=== PATIENT | male | born 1960 | race Caucasian/White ===

== ENCOUNTER → 2016-04-16 | Day surgery (SDC) | payer MEDICARE ==
[~2016-04-16] VITALS: Ht 185.4 cm; Wt 98.0 kg
[~2016-04-16] MED LIST: CONRAY-60 60% 50ML VIAL (Q9961) As Ordered ONE; EFFE37.527 PO; FLOM5CAP PO; GLYCOPYRROLATE INJ 0.2 MG/ML 2 ML VIAL As Ordered ONE; HYDR1TAB97 PO; HYDROmorphone HCL 1 MG/ML SYRINGE (J1170) IV PRN; LACT10SO29 PO; LIDOCAINE 2% INJ 100 MG/5 ML SDV (FOR ANES.) As Ordered ONE; LR 1,000 ML IV SCH; METOCLOPRAMIDE INJ 10MG/2ML VIAL (J2765) As Ordered ONE; MIDAZOLAM INJ 2 MG/2 ML VIAL (J2250) As Ordered ONE; MULT1TAB10 PO; NEOSTIGMINE 1MG/ML 5 ML SYRINGE (J2710) As Ordered ONE; NORCO, ANEXSIA 5/325MG TABLET (HYDROcodone/ACETAMINOPHEN) PO PRN; OMEP20CA3 PO; ONDA4TAB6 SL; ONDANSETRON 4MG/2ML VIAL (J2405) As Ordered ONE; ONDANSETRON 4MG/2ML VIAL (J2405) IV PRN; PROP10TAB PO; PROP20EL PO; PROPOFOL 200 MG/20 ML VIAL As Ordered ONE; ROCURONIUM BROMIDE 50 MG/5 ML VIAL As Ordered ONE; SPIR100T PO; TRAM50TA2 PO; VIAG100T PO; dexameTHASONE 4 MG/ML 1ML VIAL (J1100) As Ordered ONE; fentaNYL 100 MCG/2 ML INJECTION (J3010) As Ordered ONE
--- NOTE | 2016-04-16 10:25 | RO ---
DATE OF PROCEDURE: 04/16/2016 PREPROCEDURE DIAGNOSIS: Obstructing right ureteral stone. POSTPROCEDURE DIAGNOSIS: Obstructing right ureteral stone. PROCEDURE: Cystoscopy, right ureteroscopy with laser lithotripsy and basket extraction of stones, right retrograde pyelogram with intraoperative interpretation of images, right ureteral stent placement. SURGEON: Dr. Serge Muniz. WRIST CLOSER: None. ANESTHESIA: General. OPERATIVE INDICATIONS: This is a 55-year-old male who was found to have an obstructing 8-9 mm proximal right ureteral stone recently on CAT scan. He was brought to the operating room today for treatment. DESCRIPTION OF PROCEDURE: The patient was brought to the operating room where general anesthesia was induced. Prophylactic antibiotics were infused. He was placed in dorsal lithotomy position, and prepped and draped in the usual sterile fashion. A rigid cystoscope was then inserted into the urethral meatus and advanced into the bladder. Once within the bladder, a guidewire was advanced up the right collecting system. The cystoscope was then removed and the wire was utilized to advance a ureteral access sheath up the right collecting system. The stylet was the removed and the wire was secured to the drape to serve as a safety wire. I then went up the ureteral access sheath with a flexible ureteroscope and in the proximal right ureter, there was an obstructing 8-9 mm stone. The stone was fragmented into several smaller pieces using a 200 micron laser fiber. The larger of these stone fragments were then removed using the stone basket. Some of the smaller fragments were washed up into the kidney. The kidney was thoroughly examined and there were a few small stone fragments that were deemed small enough to pass on either own. Any larger stone fragments were removed with the stone basket. After that, a retrograde pyelogram was performed and it was notable for moderate right hydronephrosis. At this point, the ureteral access sheath was removed along with the ureteroscope and no additional stones were seen behind the ureteral access sheath. I then utilized the previously placed wire to advance a #6 [place] x 22-32 cm JJ ureteral stent up into the right collecting system. The wire was then removed and there was adequate curls of the stent in the right renal pelvis and in the bladder. The bladder was then emptied of all fluid and this marked the conclusion of the procedure. The patient was then taken out of dorsal lithotomy position, awakened from anesthesia and transported to the recovery room in stable condition. ESTIMATED BLOOD LOSS: 0 mL. COMPLICATIONS: None. SPECIMENS: Kidney stone fragments. PLAN: The patient will followup in the clinic in a few weeks for cystoscopy and stent removal. DAVID
[2016-04-16] MEDS: fentaNYL 100 MCG/2 ML INJECTION (J3010) IV PRN ×4 (10:30→10:45)
--- NOTE | 2016-04-16 10:45 | REP ---
C-ARM VIEWS DURING RETROGRADE PYELOGRAM: First image shows a calculus in the proximal right ureter. There is a wire in the right ureter extending into the right renal pelvis. There is injection of contrast on the second image partially opacifying the right pelvicaliceal system. There is placement of a right ureteral stent on subsequent image with the proximal end coiled in the region of the right renal pelvis and the distal end coiled in the region over the urinary bladder. 19 seconds of fluoroscopy time utilized. Signed by Krishna Marino MD 04/16/2016 05:20 P
[2016-04-16 12:15] VITALS: BP 138/78
== END | disposition home or self-care (01) ==
LOC: M SDC 07:25
PROVIDERS: ATTEND Urology
DX: N20.1 Calculus of ureter (principal); I12.9 Hypertensive chronic kidney disease with stage 1 through stage 4 chronic kidney disease, or unspecified chronic kidney disease; E03.9 Hypothyroidism, unspecified; K82.9 Disease of gallbladder, unspecified; K74.60 Unspecified cirrhosis of liver; R23.3 Spontaneous ecchymoses; G47.9 Sleep disorder, unspecified; H81.02 Meniere's disease, left ear; N18.9 Chronic kidney disease, unspecified; Z88.5 Allergy status to narcotic agent; Z88.6 Allergy status to analgesic agent; Z79.899 Other long term (current) drug therapy
CPT/HCPCS: 52352; 52356; 74420; 82360; 88300; 96374; 96375; J0690; J1100; J1170; J2250; J2405; J2710; J2765; J3010; Q9961

== ENCOUNTER → 2017-07-16 | Outpatient (CLI) | payer MEDICARE ==
[2017-07-16 12:53] LABS: AMMONIA 27 uMOL/L (<32)
== END ==
LOC: M RAD 10:10
DX: K82.8 Other specified diseases of gallbladder (principal); K76.0 Fatty (change of) liver, not elsewhere classified; K74.60 Unspecified cirrhosis of liver
CPT/HCPCS: 76700

== ENCOUNTER → 2018-10-05 | Outpatient (CLI) | payer MEDICARE ==
[~2018-10-05] MED LIST changes: -CONRAY-60 60% 50ML VIAL (Q9961) As Ordered ONE; +EFFE37.5 PO; -EFFE37.527 PO; +FLOM0.4C39 PO; -FLOM5CAP PO; -GLYCOPYRROLATE INJ 0.2 MG/ML 2 ML VIAL As Ordered ONE; +HYDR-3713 PO; -HYDR1TAB97 PO; -HYDROmorphone HCL 1 MG/ML SYRINGE (J1170) IV PRN; -LIDOCAINE 2% INJ 100 MG/5 ML SDV (FOR ANES.) As Ordered ONE; -LR 1,000 ML IV SCH; -METOCLOPRAMIDE INJ 10MG/2ML VIAL (J2765) As Ordered ONE; -MIDAZOLAM INJ 2 MG/2 ML VIAL (J2250) As Ordered ONE; -NEOSTIGMINE 1MG/ML 5 ML SYRINGE (J2710) As Ordered ONE; -NORCO, ANEXSIA 5/325MG TABLET (HYDROcodone/ACETAMINOPHEN) PO PRN; -ONDANSETRON 4MG/2ML VIAL (J2405) As Ordered ONE; -ONDANSETRON 4MG/2ML VIAL (J2405) IV PRN; +PROP10TA56 PO; -PROP10TAB PO; -PROPOFOL 200 MG/20 ML VIAL As Ordered ONE; -ROCURONIUM BROMIDE 50 MG/5 ML VIAL As Ordered ONE; -SPIR100T PO; +SPIR100T3 PO; -dexameTHASONE 4 MG/ML 1ML VIAL (J1100) As Ordered ONE; -fentaNYL 100 MCG/2 ML INJECTION (J3010) As Ordered ONE
--- NOTE | 2018-10-05 11:51 | REP ---
Clinical: Cirrhosis. Technique: Real time rodriguez scale ultrasound examination using curved array transducer. Comparison: 07/16/2017. Findings: The liver demonstrates coarsened echotexture with nodular contour consistent with cirrhosis. No focal hepatic lesion identified. Main portal vein measures 14.3 mm diameter with normal wave pattern at 39.0 cm/sec. The gallbladder is contracted and presumed to be filled with gallstones although gallbladder wall calcifications cannot be excluded as well. No biliary ductal dilatation is appreciated and the common bile duct measures 2.9 mm diameter. The pancreas is incompletely evaluated due to interposed bowel gas but visualized portions appear normal. The spleen is mildly enlarged and measures 11.1 x 5.6 x 12.7 cm (splenic index 789) without focal splenic lesion identified. The bilateral kidneys are relatively normal in reniform shape without hydronephrosis. Right kidney measures 11.7 x 6.1 x 6.2 cm. Left kidney measures 11.8 x 4.7 x 5.8 cm. Abdominal aorta is normal and measures 2.3 cm maximal diameter. No ascites noted. Impression: 1. Cirrhosis without focal hepatic lesion identified. 2. Contracted gallbladder with calcified wall and/or cholelithiasis. 3. Mildly enlarged spleen without focal splenic lesion identified. Electronically Signed by Kadeem Kirkpatrick MD 10/05/2018 11:42 A
== END ==
LOC: M RAD 09:34
PROVIDERS: ATTEND Internal Medicine Gastroenterology
DX: K74.60 Unspecified cirrhosis of liver (principal)

== ENCOUNTER → 2019-03-08 | Outpatient (CLI) | payer MEDICARE ==
[~2019-03-08] MED LIST changes: -OMEP20CA3 PO; +OMEP20CA4 PO
[2019-03-08 08:00] LABS: HEMATOCRIT 45.4 % (42.0-52.0); HEMOGLOBIN 15.4 g/dl (13.5-17.5); MEAN CORPUSCULAR HEMOGLOBIN 30.4 pg (27.0-33.0); MEAN CORPUSCULAR HGB CONC 33.9 g/dl (32.0-36.5); MEAN CORPUSCULAR VOLUME 89.7 fl (80.0-96.0); PLATELET COUNT, AUTOMATED 237 10^3/uL (150-450); RED BLOOD COUNT 5.06 10^6/uL (4.30-6.10); WHITE BLOOD COUNT 10.5 10^3/uL (4.0-10.0)
[2019-03-08 08:11] LABS: PROTHROMBIN TIME 12.9 SECONDS (11.8-14.0)
[2019-03-08 08:19] LABS: ALBUMIN 4.4 GM/DL (3.2-5.2); ALT/SGPT 23 U/L (12-78); BILIRUBIN,TOTAL 0.5 MG/DL (0.2-1.0); BLOOD UREA NITROGEN 16 MG/DL (7-18); CALCIUM LEVEL 9.3 MG/DL (8.5-10.1); CARBON DIOXIDE LEVEL 29 MEQ/L (21-32); CHLORIDE LEVEL 105 MEQ/L (98-107); CREATININE FOR GFR 1.29 MG/DL (0.70-1.30); GLOMERULAR FILTRATION RATE > 60.0 (>56); GLUCOSE, FASTING 98 MG/DL (70-100); POTASSIUM SERUM 4.4 MEQ/L (3.5-5.1); SODIUM LEVEL 140 MEQ/L (136-145); TOTAL PROTEIN 8.3 GM/DL (6.4-8.2)
--- NOTE | 2019-03-08 12:35 | REP ---
Clinical: Cirrhosis. Technique: Real time rodriguez scale ultrasound examination using curved array transducer. Comparison: 10/05/2018 Findings: The liver is heterogeneous and increased in density with poor through transmission suggesting hepatocellular disease. No focal hepatic lesion identified. The pancreas is incompletely evaluated due to interposed bowel gas. The spleen is mildly enlarged and measures 11.3 x 11.2 x 4.4 cm without focal splenic lesion identified. The gallbladder is incompletely evaluated due to technical factors. The common bile duct is normal and measures 3.4 mm diameter. The bilateral kidneys without hydronephrosis. Right kidney measures 11.8 x 5.8 x 5.7 cm. Left kidney measures 11.4 x 4.8 x 5.7 cm. Visualized abdominal aorta measures up to 1.8 cm maximal diameter. No ascites identified. Impression: 1. Significantly limited examination demonstrating hepatocellular disease consistent with cirrhosis. No focal hepatic lesion identified. 2. Mild splenomegaly. 3. Poor evaluation of the gallbladder due to technical factors. Electronically Signed by Kadeem Kirkpatrick MD 03/08/2019 09:37 A
== END ==
LOC: M RAD 07:26
PROVIDERS: ATTEND Internal Medicine Gastroenterology
DX: R16.1 Splenomegaly, not elsewhere classified (principal); K74.60 Unspecified cirrhosis of liver

== ENCOUNTER → 2019-09-30 | Outpatient (CLI) | payer MEDICARE ==
[~2019-09-30] MED LIST changes: -LACT10SO29 PO; +LACT20EL PO; +OMEP1CAP73 PO; -OMEP20CA4 PO
[2019-09-30 17:49] LABS: HEMATOCRIT 46.8 % (42.0-52.0); HEMOGLOBIN 15.5 g/dl (13.5-17.5); MEAN CORPUSCULAR HEMOGLOBIN 29.6 pg (27.0-33.0); MEAN CORPUSCULAR HGB CONC 33.1 g/dl (32.0-36.5); MEAN CORPUSCULAR VOLUME 89.3 fl (80.0-96.0); PLATELET COUNT, AUTOMATED 254 10^3/uL (150-450); RED BLOOD COUNT 5.24 10^6/uL (4.30-6.10)
[2019-09-30 18:21] LABS: ALBUMIN 4.5 GM/DL (3.2-5.2); ALT/SGPT 19 U/L (12-78); BILIRUBIN,TOTAL 0.3 MG/DL (0.2-1.0); BLOOD UREA NITROGEN 13 MG/DL (7-18); CALCIUM LEVEL 9.9 MG/DL (8.5-10.1); CARBON DIOXIDE LEVEL 29 MEQ/L (21-32); CHLORIDE LEVEL 104 MEQ/L (98-107); CREATININE FOR GFR 1.23 MG/DL (0.70-1.30); GLOMERULAR FILTRATION RATE > 60.0 (>56); GLUCOSE, FASTING 88 MG/DL (70-100); POTASSIUM SERUM 4.9 MEQ/L (3.5-5.1); SODIUM LEVEL 136 MEQ/L (136-145); TOTAL PROTEIN 8.2 GM/DL (6.4-8.2)
== END ==
LOC: M LAB 17:09
PROVIDERS: ATTEND Internal Medicine
DX: K74.60 Unspecified cirrhosis of liver (principal)

== ENCOUNTER → 2020-02-29 | Outpatient (CLI) | payer MEDICARE ==
--- NOTE | 2020-02-29 16:49 | REP ---
INDICATION: CIRRHOSIS OF LIVER. COMPARISON: 03/08/2019. TECHNIQUE: Real-time sonographic evaluation of ABDOMEN performed. FINDINGS: Once again in the gallbladder fossa the there is an echogenic area compatible with a collapsed gallbladder with intraluminal calcification as seen on prior CT of 03/16/2016 as well as the prior ultrasound, unchanged.. There is no intrahepatic or extrahepatic biliary dilatation, common bile duct measures 4 mm in maximum diameter. Liver demonstrates diffuse heterogeneous echotexture unchanged, with no gross mass. The pancreas demonstrates homogeneous echotexture with no gross mass. Overlying bowel gas limits the visualization of the pancreas. Spleen is normal in length with no intrinsic abnormality, measuring 11.7 cm in length. Splenic index is mildly elevated at 547, unchanged. There is no evidence of hydronephrosis, cyst, mass, or calculus in either kidney. The right kidney measures 10.4 x 4.8 x 6.0 cm. Left renal dimensions are 11.2 x 4.0 x 5.6 cm. The abdominal aorta is normal in caliber with no aneurysm. The proximal abdominal aorta is not visualized due to overlying bowel gas. No free fluid is seen. IMPRESSION: No change since prior study. Stable echogenic area in the gallbladder fossa compatible with collapsed gallbladder with intraluminal calcification. Diffuse coarsening of echotexture of the liver without evidence of mass. Normal splenic length but mildly elevated splenic index unchanged. No free fluid. <Electronically signed by Krishna Marino > 02/29/20 [id number]
== END ==
LOC: M RAD 08:52
PROVIDERS: ATTEND Internal Medicine
DX: K74.60 Unspecified cirrhosis of liver (principal)

== ENCOUNTER → 2020-03-22 | Outpatient (CLI) | payer MEDICARE ==
[2020-03-22 12:46] LABS: HEMATOCRIT 45.3 % (42.0-52.0); HEMOGLOBIN 14.9 g/dl (13.5-17.5); MEAN CORPUSCULAR HEMOGLOBIN 29.5 pg (27.0-33.0); MEAN CORPUSCULAR HGB CONC 32.9 g/dl (32.0-36.5); MEAN CORPUSCULAR VOLUME 89.7 fl (80.0-96.0); PLATELET COUNT, AUTOMATED 223 10^3/uL (150-450); RED BLOOD COUNT 5.05 10^6/uL (4.30-6.10); WHITE BLOOD COUNT 8.8 10^3/uL (4.0-10.0)
[2020-03-22 12:57] LABS: INR 0.86; PROTHROMBIN TIME 11.9 SECONDS (12.5-14.3)
[2020-03-22 13:17] LABS: ALBUMIN 4.2 GM/DL (3.2-5.2); ALT/SGPT 22 U/L (12-78); BILIRUBIN,TOTAL 0.4 MG/DL (0.2-1.0); BLOOD UREA NITROGEN 14 MG/DL (7-18); CARBON DIOXIDE LEVEL 29 MEQ/L (21-32); CHLORIDE LEVEL 108 MEQ/L (98-107); GLOMERULAR FILTRATION RATE > 60.0 (>56); GLUCOSE, FASTING 83 MG/DL (70-100); POTASSIUM SERUM 4.2 MEQ/L (3.5-5.1); SODIUM LEVEL 140 MEQ/L (136-145); TOTAL PROTEIN 7.6 GM/DL (6.4-8.2)
== END ==
LOC: M LAB 12:15
PROVIDERS: ATTEND Internal Medicine
DX: K74.60 Unspecified cirrhosis of liver (principal)

== ENCOUNTER → 2020-12-10 | Outpatient (CLI) | payer MEDICARE ==
--- NOTE | 2020-12-10 09:58 | REP ---
INDICATION: CIRRHOSIS OF LIVER COMPARISON: 02/29/2020 TECHNIQUE: Real time B-mode rodriguez scale ultrasound examination using curved array transducer. FINDINGS: Liver demonstrates coarsened echotexture without focal hepatic lesion identified and no evidence for hepatomegaly. Pancreas is incompletely evaluated due to interposed bowel gas. The spleen is mildly enlarged measuring 10.1 x 10.1 x 5.2 cm (splenic index 530). No focal splenic lesion identified. Gallbladder is not visualized. No evidence for biliary ductal dilatation. The bilateral kidneys are normal in reniform shape without hydronephrosis or obvious abnormality. Right kidney measures 10.9 x 5.2 x 5.3 cm. Left kidney measures 11.5 x 4.7 x 5.4 cm. Visualized portions of the abdominal aorta are unremarkable. No ascites. IMPRESSION: No significant change from prior examination. <Electronically signed by Kadeem Kirkpatrick > 12/10/20 [id number]
== END ==
LOC: M RAD 09:16
PROVIDERS: ATTEND Internal Medicine
DX: K74.60 Unspecified cirrhosis of liver (principal); R16.1 Splenomegaly, not elsewhere classified

== ENCOUNTER → 2021-01-10 | Outpatient (REF) | payer MEDICARE ==
[2021-01-10 17:44] LABS: APPEARANCE, URINE CLEAR (CLEAR); BACTERIA, URINE AUTO NEGATIVE (NEGATIVE); BILIRUBIN, URINE AUTO NEGATIVE (NEGATIVE); BLOOD, URINE BLOOD NEGATIVE (NEGATIVE); COLOR, URINE YELLOW (YELLOW); GLUCOSE, URINE (UA) AUTO NEGATIVE (NEGATIVE); KETONE, URINE AUTO NEGATIVE (NEGATIVE); LEUKOCYTE ESTERASE, URINE AUTO NEGATIVE (NEGATIVE); NITRITE, URINE AUTO NEGATIVE (NEGATIVE); PROTEIN, URINE AUTO NEGATIVE (NEGATIVE); RBC, URINE AUTO 0 /HPF (0-3); SPECIFIC GRAVITY URINE AUTO 1.008 (1.002-1.035); SQUAMOUS EPITHELIAL CELL UR AU 0 /HPF (0-6); UROBILINOGEN, URINE AUTO 0.2 mg/dL (0.0-2.0); WBC, URINE AUTO 1 /HPF (0-3)
[2021-01-10 19:21] LABS: GC DNA AMPLIFICATION NEGATIVE (NEGATIVE)
== END ==
LOC: M SMT 17:16
PROVIDERS: ATTEND Urology
DX: R36.9 Urethral discharge, unspecified (principal)
CPT/HCPCS: 81001; 87086; 87661; G0463

== ENCOUNTER → 2021-01-23 | Outpatient (CLI) | payer MEDICARE | LOC: M LAB 15:44 | PROVIDERS: ATTEND Urology | DX: R36.9 Urethral discharge, unspecified (principal); Z79.899 Other long term (current) drug therapy | CPT/HCPCS: 36415; G0103 ==

== ENCOUNTER → 2022-03-11 | Outpatient (CLI) | payer MEDICARE | LOC: M RAD 09:47 | PROVIDERS: ATTEND Internal Medicine | DX: R16.1 Splenomegaly, not elsewhere classified (principal); K74.60 Unspecified cirrhosis of liver; N20.0 Calculus of kidney ==

== ENCOUNTER → 2022-05-26 | Outpatient (CLI) | payer MEDICARE ==
[2022-05-26 12:29] LABS: APPEARANCE, URINE MANUAL CLEAR (CLEAR); BILIRUBIN, URINE MANUAL NEGATIVE (NEGATIVE); BLOOD URINE MANUAL NEGATIVE (NEGATIVE); COLOR, URINE MANUAL YELLOW (YELLOW); GLUCOSE, URINE (UA) MANUAL NEGATIVE (NEGATIVE); KETONE, URINE MANUAL NEGATIVE (NEGATIVE); LEUKOCYTE ESTERASE, URINE MAN NEGATIVE (NEGATIVE); NITRITE, URINE MANUAL NEGATIVE (NEGATIVE); PROTEIN, URINE MANUAL NEGATIVE (NEGATIVE); SPECIFIC GRAVITY,URINE MANUAL 1.015 (1.002-1.035); UROBILINOGEN, URINE MANUAL NORMAL (NORMAL)
== END ==
LOC: M LAB 11:03
PROVIDERS: ATTEND Internal Medicine
DX: N20.0 Calculus of kidney (principal)

== ENCOUNTER → 2022-09-17 | Outpatient (CLI) | payer MEDICARE | LOC: M RAD 09:05 | PROVIDERS: ATTEND Internal Medicine | DX: N20.0 Calculus of kidney (principal); K76.7 Hepatorenal syndrome ==

== ENCOUNTER → 2023-05-22 | Outpatient (REF) | payer MEDICARE ==
[~2023-05-22] MED LIST changes: -EFFE37.5 PO; +EFFE37.52 PO
[2023-05-22 17:54] LABS: APPEARANCE, URINE CLEAR (CLEAR); BACTERIA, URINE AUTO NEGATIVE (NEGATIVE); BILIRUBIN, URINE AUTO NEGATIVE (NEGATIVE); BLOOD, URINE BLOOD NEGATIVE (NEGATIVE); COLOR, URINE YELLOW (YELLOW); GLUCOSE, URINE (UA) AUTO NEGATIVE (NEGATIVE); KETONE, URINE AUTO TRACE mg/dL (NEGATIVE); LEUKOCYTE ESTERASE, URINE AUTO NEGATIVE (NEGATIVE); NITRITE, URINE AUTO NEGATIVE (NEGATIVE); PROTEIN, URINE AUTO NEGATIVE (NEGATIVE); RBC, URINE AUTO 0 /HPF (0-3); SPECIFIC GRAVITY URINE AUTO 1.013 (1.002-1.035); SQUAMOUS EPITHELIAL CELL UR AU 0 /HPF (0-6); UROBILINOGEN, URINE AUTO 0.2 mg/dL (0.0-2.0); WBC, URINE AUTO 0 /HPF (0-3)
== END ==
LOC: M SMT 17:06
PROVIDERS: ATTEND Urology
DX: N20.0 Calculus of kidney (principal)

== ENCOUNTER → 2023-06-01 | Outpatient (CLI) | payer MEDICARE | LOC: M RAD 13:58 | PROVIDERS: ATTEND Urology | DX: N20.0 Calculus of kidney (principal) ==

== ENCOUNTER → 2023-06-23 | Outpatient (CLI) | payer MEDICARE ==
[2023-06-23 13:33] LABS: BLOOD UREA NITROGEN 11 MG/DL (9-23); CALCIUM LEVEL 9.4 MG/DL (8.3-10.6); CARBON DIOXIDE LEVEL 29 MMOL/L (20-31); CHLORIDE LEVEL 104 MMOL/L (98-107); CREATININE FOR GFR 1.26 MG/DL (0.70-1.30); GLOMERULAR FILTRATION RATE > 60.0 (>49); GLUCOSE, FASTING 100 MG/DL (74-106); POTASSIUM SERUM 5.1 MMOL/L (3.5-5.1); SODIUM LEVEL 136 MMOL/L (136-145)
== END ==
LOC: M LAB 12:13
PROVIDERS: ATTEND Urology
DX: N20.0 Calculus of kidney (principal)